=== PATIENT | female | born 1950 | race Caucasian/White ===

== ENCOUNTER → 2017-02-13 | Outpatient (CLI) | payer OTHER | LOC: FLAB 12:07 → EDSTATUS 12:08 → FIMAGING 12:09 | PROVIDERS: ATTEND Internal Medicine | DX: S22.42XA Multiple fractures of ribs, left side, initial encounter for closed fracture (principal); W18.2XXA Fall in (into) shower or empty bathtub, initial encounter ==

== ENCOUNTER → 2018-04-23 | Outpatient (CLI) | payer OTHER | LOC: BMCIMAGING 08:42 | PROVIDERS: ATTEND Family Medicine | DX: M25.532 Pain in left wrist (principal); M85.842 Other specified disorders of bone density and structure, left hand ==

== ENCOUNTER → 2018-10-29 | Outpatient (CLI) | payer OTHER | LOC: BMCIMAGING 10:06 | PROVIDERS: ATTEND Internal Medicine | DX: R05 Cough (principal) ==

== ENCOUNTER → 2019-01-01 | Outpatient (CLI) | payer OTHER | LOC: FIMAGING 07:27 ==